=== PATIENT | male | born 1990 | race Two or more races ===

== ENCOUNTER 2019-04-16 23:24 | Emergency (ER) | payer OTHER ==
[~2019-04-16] VITALS: Ht 182.9 cm; Wt 120.0 kg
[~2019-04-16 23:24] MED LIST: ARIP5TAB8 PO; CLON0.2T PO; INSLAN; METF1000 PO; PROZ10 PO
[2019-04-16] MEDS ORDERED: ARIP15TA2 PO (23:39)
[2019-04-16] MEDS ORDERED: ERTU15TA PO (23:42)
[2019-04-16] MEDS ORDERED: PRAV20TA4 PO (23:44)
[2019-04-17] MEDS ORDERED: SODIUM CHLORIDE 0.9% 1,000 ML IV ONE
[2019-04-17 00:25] LABS: GLUCOSE,POINT OF CARE 212 MG/DL (70-110)
[2019-04-17 01:10] LABS: AMPHET/METH SCREEN,URINE NEGATIVE (NEGATIVE); BARBITURATE SCREEN, URINE NEGATIVE (NEGATIVE); BENZODIAZEPINES SCREEN,URINE NEGATIVE (NEGATIVE); CANNABINOID SCREEN,URINE NEGATIVE (NEGATIVE); COCAINE SCREEN,URINE NEGATIVE (NEGATIVE); METHADONE SCREEN, URINE NEGATIVE (NEGATIVE); OPIATE SCREEN,URINE NEGATIVE (NEGATIVE); PHENCYCLIDINE SCREEN,URINE NEGATIVE (NEGATIVE)
[2019-04-17 01:17] LABS: ALANINE AMINOTRANSFERASE 27 U/L (12-78); ALBUMIN 4.5 g/dL (3.4-5.0); ALKALINE PHOSPHATASE 113 U/L (46-116); ANION GAP 13 mmol/L (8-16); ASPARTATE AMINOTRANSFERASE 18 U/L (15-37); BILIRUBIN,TOTAL 1.7 mg/dL (0.1-1.0); CALCIUM, TOTAL 9.5 mg/dL (8.8-10.5); CARBON DIOXIDE 25 mmol/L (22-29); CHLORIDE 93 mmol/L (98-107); GLOMERULAR FILTR. RATE CALC > 60 mL/min (>60); GLUCOSE,RANDOM 205 mg/dL (70-110); SODIUM SERUM 131 mmol/L (136-145); TOTAL PROTEIN, SERUM 8.3 g/dL (6.4-8.2); UREA NITROGEN, BLOOD 5 mg/dL (7-18)
[2019-04-17 01:23] LABS: BASOPHILS % (AUTO) 0.5 % (0.0-2.0); EOSINOPHILS % (AUTO) 3.2 % (1.0-6.0); HEMATOCRIT 46.2 % (41-53); HEMOGLOBIN 15.7 g/dL (13.5-17.5); LYMPHOCYTES # (AUTO) 2.6 K/uL (1.0-4.8); LYMPHOCYTES % (AUTO) 36.9 % (22.0-44.0); MEAN CORPUSCULAR HEMOGLOBIN 29.2 pg (26.0-34.0); MEAN CORPUSCULAR VOLUME 86 fL (80-100); MONOCYTES # (AUTO) 0.7 K/uL (0.1-1.0); MONOCYTES % (AUTO) 10.3 % (2.0-9.0); NEUTROPHILS # (AUTO) 3.5 K/uL (1.8-7.7); NEUTROPHILS % (AUTO) 49.1 % (40.0-70.0); PLATELET COUNT (AUTO) 288 K/uL (150-450); RED BLOOD CELL COUNT(AUTO) 5.37 MIL/uL (4.50-5.90); RED CELL DISTRIBUTION WIDTH 13.4 % (11.5-14.5)
[2019-04-17 01:24] LABS: POTASSIUM 2.6 mmol/L (3.5-5.1)
[2019-04-17] MEDS ORDERED: POTASSIUM CHLORIDE 20 MEQ ER TABLET PO ONE ×2 (01:30→16:15)
[2019-04-17] MEDS ORDERED: POTASSIUM CHL 40 MEQ/D5-0.45NS 1,000 ML IV ONE ×2 (01:30→02:00)
[2019-04-17 01:43] LABS: ACETONE,BLOOD NEGATIVE (NEGATIVE)
[2019-04-17 03:45] LABS: GLUCOSE,POINT OF CARE 170 MG/DL (70-110)
[2019-04-17] MEDS ORDERED: ONDANSETRON HCL 4 MG/2 ML VIAL IVP PRN (04:30)
[2019-04-17] MEDS ORDERED: 0.9% SODIUM CHLORIDE 10 ML SYRINGE IVP PRN (04:30)
[2019-04-17] MEDS ORDERED: ACETAMINOPHEN 325 MG TABLET PO PRN (04:30)
[2019-04-17 07:35] LABS: GLUCOSE,POINT OF CARE 139 MG/DL (70-110)
[2019-04-17 11:35] LABS: ANION GAP 7 mmol/L (8-16); CALCIUM, TOTAL 9.5 mg/dL (8.8-10.5); CARBON DIOXIDE 29 mmol/L (22-29); CHLORIDE 101 mmol/L (98-107); CREATININE 0.84 mg/dL (0.60-1.30); GLOMERULAR FILTR. RATE CALC > 60 mL/min (>60); GLUCOSE,RANDOM 120 mg/dL (70-110); POTASSIUM 3.5 mmol/L (3.5-5.1); SODIUM SERUM 137 mmol/L (136-145); UREA NITROGEN, BLOOD 4 mg/dL (7-18)
[2019-04-17 13:40] LABS: GLUCOSE,POINT OF CARE 148 MG/DL (70-110)
[2019-04-17 17:07] VITALS: BP 128/91
== END 2019-04-17 17:16 | disposition home or self-care (01) ==
LOC: EMS 23:25 → 5S 04-17 11:56 → UNDOADMIN 04-17 11:56 → EMS 04-17 17:16
DX: E87.6 Hypokalemia (principal); E87.1 Hypo-osmolality and hyponatremia; E87.8 Other disorders of electrolyte and fluid balance, not elsewhere classified; E86.0 Dehydration; F31.9 Bipolar disorder, unspecified; E11.9 Type 2 diabetes mellitus without complications; I10 Essential (primary) hypertension; F20.9 Schizophrenia, unspecified; Z79.4 Long term (current) use of insulin; Z79.84 Long term (current) use of oral hypoglycemic drugs
CPT/HCPCS: 36415; 80048; 80053; 80307; 82009; 82962; 83735; 85025; 93005; 96361; 96365; 96366; 99284; G0480; J3480; J7030

== ENCOUNTER 2019-11-17 11:33 | Emergency (ER) | payer OTHER ==
[~2019-11-17] VITALS: Ht 182.9 cm; Wt 113.6 kg
[~2019-11-17 11:33] MED LIST changes: +ARIP15TA2 PO; -ARIP5TAB8 PO; +ERTU15TA PO; +PRAV20TA4 PO
[2019-11-17 13:30] VITALS: BP 112/63
== END 2019-11-17 14:00 | disposition home or self-care (01) ==
LOC: EMS 11:34
DX: F41.9 Anxiety disorder, unspecified (principal); E11.9 Type 2 diabetes mellitus without complications; F31.9 Bipolar disorder, unspecified; F20.9 Schizophrenia, unspecified; Z79.899 Other long term (current) drug therapy; Z79.84 Long term (current) use of oral hypoglycemic drugs

== ENCOUNTER 2021-02-15 17:31 | Emergency (ER) | payer OTHER ==
[~2021-02-15] VITALS: Ht 182.9 cm; Wt 113.6 kg
[~2021-02-15 17:31] MED LIST changes: -ARIP15TA2 PO; +ARIP15TA27 PO; +FLUO10CA24 PO; -PROZ10 PO
[2021-02-15] MEDS ORDERED: INSU100V SQ (17:37)
[2021-02-15] MEDS ORDERED: DULA0.75 SQ (17:37)
[2021-02-15 17:46] LABS: GLUCOSE,POINT OF CARE 258 MG/DL (70-110)
[2021-02-15] MEDS ORDERED: IBUPROFEN 600 MG TABLET PO ONE (18:30)
[2021-02-15 18:42] LABS: GLUCOMETER DEV NAME(LOC) ERT.5; GLUCOSE,POINT OF CARE 244 MG/DL (70-110)
[2021-02-15 19:10] VITALS: BP 145/92
== END 2021-02-15 19:13 | disposition home or self-care (01) ==
LOC: EMS 17:31
DX: H60.91 Unspecified otitis externa, right ear (principal); D17.0 Benign lipomatous neoplasm of skin and subcutaneous tissue of head, face and neck; H92.01 Otalgia, right ear; E11.65 Type 2 diabetes mellitus with hyperglycemia; I10 Essential (primary) hypertension; F20.9 Schizophrenia, unspecified; F31.9 Bipolar disorder, unspecified; Z20.822 Contact with and (suspected) exposure to COVID-19; Z79.4 Long term (current) use of insulin
CPT/HCPCS: 82962; 99283; U0003

== ENCOUNTER 2021-09-04 18:02 | Emergency (ER) | payer OTHER ==
[~2021-09-04] VITALS: Ht 185.4 cm; Wt 118.2 kg
[~2021-09-04 18:02] MED LIST changes: +DULA0.75 SQ; +INSU100V SQ
[2021-09-04] MEDS ORDERED: PERTUSS(ACELL),DIPH,TET VAC/PF 0.5 ML SYRINGE IM. ONE (20:00)
[2021-09-04] MEDS ORDERED: AMOX TR/POT CLAV 875 MG/125 MG TABLET PO ONE (20:00)
[2021-09-04] MEDS ORDERED: AMOX1TAB16 PO (21:30)
[2021-09-04] MEDS ORDERED: BACITRACIN 0.9 GM PACKET OINTMENT TP ONE (21:30)
[2021-09-04] MEDS ORDERED: IBUP-2071 PO (21:30)
[2021-09-04] MEDS ORDERED: LIDOCAINE 1% 10 ML VIAL PERC ONE (21:30)
[2021-09-04 22:40] VITALS: BP 133/95
== END 2021-09-04 23:10 | disposition home or self-care (01) ==
LOC: EMS 18:07
DX: S91.352A Open bite, left foot, initial encounter (principal); F31.9 Bipolar disorder, unspecified; F20.9 Schizophrenia, unspecified; Z87.891 Personal history of nicotine dependence; Z79.4 Long term (current) use of insulin; Z79.899 Other long term (current) drug therapy; W54.0XXA Bitten by dog, initial encounter; Y93.89 Activity, other specified; Y92.89 Other specified places as the place of occurrence of the external cause; Y99.8 Other external cause status
CPT/HCPCS: 12002; 73630; 90471; 90715; 99283; J3490

== ENCOUNTER 2022-02-17 13:28 | Emergency (ER) | payer OTHER ==
[~2022-02-17] VITALS: Ht 185.4 cm; Wt 118.2 kg
[~2022-02-17 13:28] MED LIST changes: +AMOX1TAB16 PO; +IBUP-2071 PO
[2022-02-17 14:02] VITALS: BP 126/82
[2022-02-17] MEDS ORDERED: PERTUSS(ACELL),DIPH,TET VAC/PF 0.5 ML SYRINGE IM. ONE (16:45)
== END 2022-02-17 17:18 | disposition home or self-care (01) ==
LOC: EMS 13:28
DX: S61.442A Puncture wound with foreign body of left hand, initial encounter (principal); F31.9 Bipolar disorder, unspecified; E11.9 Type 2 diabetes mellitus without complications; F20.9 Schizophrenia, unspecified
CPT/HCPCS: 73130; 90471; 90715; 96372; 99284; J0690

== ENCOUNTER 2023-02-13 17:44 | Emergency (ER) | payer OTHER ==
[~2023-02-13] VITALS: Ht 182.9 cm; Wt 113.6 kg
[~2023-02-13 17:44] MED LIST changes: -AMOX1TAB16 PO; -IBUP-2071 PO; -INSLAN; -INSU100V SQ
[2023-02-13 17:53] VITALS: TEMP 98.6
[2023-02-13] MEDS ORDERED: HydrOXYzine PAMOATE 50 MG CAPSULE PO ONE (18:15)
[2023-02-13] MEDS ORDERED: IBUPROFEN 600 MG TABLET PO ONE (18:15)
[2023-02-13] MEDS ORDERED: ATOR40TA71 PO (18:24)
[2023-02-13] MEDS ORDERED: TRAZ-257 PO (18:24)
[2023-02-13] MEDS ORDERED: METF-446 PO (18:24)
[2023-02-13] MEDS ORDERED: SEMA0.5P SQ (18:24)
[2023-02-13] MEDS ORDERED: CHOL200074 PO (18:24)
[2023-02-13] MEDS ORDERED: ARIP400S IM (18:24)
[2023-02-13] MEDS ORDERED: FLUO40CA PO (18:24)
[2023-02-13] MEDS ORDERED: INSU500V SQ (18:24)
[2023-02-13] MEDS ORDERED: IBUP-1492 PO (19:01)
[2023-02-13 19:27] VITALS: BP 127/81; PULSE 104; RESP 18
[2023-02-13] MEDS ORDERED: HYDR-4808 PO (19:42)
== END 2023-02-13 19:59 | disposition home or self-care (01) ==
LOC: EMS 17:47
DX: S09.90XA Unspecified injury of head, initial encounter (principal); E11.65 Type 2 diabetes mellitus with hyperglycemia; F41.9 Anxiety disorder, unspecified; F31.9 Bipolar disorder, unspecified; F20.9 Schizophrenia, unspecified; Z87.891 Personal history of nicotine dependence; Y04.2XXA Assault by strike against or bumped into by another person, initial encounter; Y93.89 Activity, other specified; Y92.89 Other specified places as the place of occurrence of the external cause; Y99.8 Other external cause status
CPT/HCPCS: 70450; 82948; 99284

== ENCOUNTER 2023-02-20 22:09 | Emergency (ER) | payer OTHER ==
[~2023-02-20] VITALS: Ht 182.9 cm; Wt 115.9 kg
[~2023-02-20 22:09] MED LIST changes: -ARIP15TA27 PO; +ARIP400S IM; +ATOR40TA71 PO; +CHOL200074 PO; -DULA0.75 SQ; -FLUO10CA24 PO; +FLUO40CA PO; +HYDR-4808 PO; +IBUP-1492 PO; +INSU500V SQ; +METF-446 PO; -METF1000 PO; -PRAV20TA4 PO; +SEMA0.5P SQ; +TRAZ-257 PO
[2023-02-20 22:21] VITALS: TEMP 98.5
[2023-02-20 22:36] LABS: GLUCOMETER DEV NAME(LOC) ERT.5; GLUCOSE,POINT OF CARE 382 MG/DL (70-110)
[2023-02-21] MEDS ORDERED: SODIUM CHLORIDE 0.9% 1,000 ML IV ONE (01:00)
[2023-02-21 01:30] VITALS: BP 134/71; PULSE 82; RESP 17
[2023-02-21 01:36] LABS: BASOPHILS % (AUTO) 0.5 % (0.0-2.0); EOSINOPHILS % (AUTO) 4.5 % (1.0-6.0); HEMATOCRIT 43.8 % (41-53); HEMOGLOBIN 14.7 g/dL (13.5-17.5); LYMPHOCYTES # (AUTO) 2.1 K/uL (1.0-4.8); LYMPHOCYTES % (AUTO) 39.6 % (22.0-44.0); MEAN CORPUSCULAR HEMOGLOBIN 28.6 pg (26.0-34.0); MEAN CORPUSCULAR HGB CONC 33.7 G/dL (31.0-37.0); MEAN CORPUSCULAR VOLUME 85 fL (80-100); MONOCYTES # (AUTO) 0.4 K/uL (0.1-1.0); MONOCYTES % (AUTO) 6.9 % (2.0-9.0); NEUTROPHILS # (AUTO) 2.6 K/uL (1.8-7.7); NEUTROPHILS % (AUTO) 48.5 % (40.0-70.0); PLATELET COUNT (AUTO) 224 K/uL (150-450); RED BLOOD CELL COUNT(AUTO) 5.16 MIL/uL (4.50-5.90); RED CELL DISTRIBUTION WIDTH 13.3 % (11.5-14.5)
[2023-02-21 01:58] LABS: ANION GAP 9 mmol/L (8-16); CALCIUM, TOTAL 9.3 mg/dL (8.8-10.5); CARBON DIOXIDE 30 mmol/L (22-29); CHLORIDE 97 mmol/L (98-107); CREATININE 0.99 mg/dL (0.60-1.30); GLOMERULAR FILTR. RATE CALC > 60 mL/min (>60); GLUCOSE,RANDOM 320 mg/dL (70-110); POTASSIUM 3.5 mmol/L (3.5-5.1); SODIUM SERUM 136 mmol/L (136-145)
[2023-02-21] MEDS ORDERED: ACETAMINOPHEN 500 MG TABLET PO ONE (02:00)
[2023-02-21] MEDS ORDERED: CYCLOBENZAPRINE HCL 10 MG TABLET PO ONE (02:15)
[2023-02-21] MEDS ORDERED: CYCL-448 PO (02:21)
== END 2023-02-21 02:25 | disposition home or self-care (01) ==
LOC: EMS 22:10
DX: E11.65 Type 2 diabetes mellitus with hyperglycemia (principal); M54.9 Dorsalgia, unspecified; F41.9 Anxiety disorder, unspecified; F31.9 Bipolar disorder, unspecified; F20.9 Schizophrenia, unspecified; Z87.891 Personal history of nicotine dependence
CPT/HCPCS: 99283; 80048; 82962; 85025; 36415; 96360; J7030

== ENCOUNTER 2023-04-10 21:48 | Emergency (ER) | payer OTHER ==
[~2023-04-10] VITALS: Ht 167.6 cm; Wt 87.0 kg
[~2023-04-10 21:48] MED LIST changes: +CYCL-448 PO
[2023-04-10] MEDS ORDERED: SODIUM CHLORIDE 0.9% 1,000 ML IV ONE (22:00)
[2023-04-10] MEDS ORDERED: ONDANSETRON HCL 4 MG/2 ML VIAL IVP ONE ×2 (22:00→23:00)
[2023-04-10 22:31] LABS: GLUCOMETER DEV NAME(LOC) ERT.5
[2023-04-10 22:33] LABS: BASOPHILS % (AUTO) 0.2 % (0.0-2.0); EOSINOPHILS % (AUTO) 0.9 % (1.0-6.0); HEMATOCRIT 42.3 % (41-53); HEMOGLOBIN 14.5 g/dL (13.5-17.5); LYMPHOCYTES # (AUTO) 1.5 K/uL (1.0-4.8); LYMPHOCYTES % (AUTO) 13.5 % (22.0-44.0); MEAN CORPUSCULAR HEMOGLOBIN 28.8 pg (26.0-34.0); MEAN CORPUSCULAR HGB CONC 34.2 G/dL (31.0-37.0); MEAN CORPUSCULAR VOLUME 84 fL (80-100); MONOCYTES # (AUTO) 0.5 K/uL (0.1-1.0); MONOCYTES % (AUTO) 4.7 % (2.0-9.0); NEUTROPHILS # (AUTO) 8.7 K/uL (1.8-7.7); NEUTROPHILS % (AUTO) 80.7 % (40.0-70.0); PLATELET COUNT (AUTO) 265 K/uL (150-450); RED BLOOD CELL COUNT(AUTO) 5.02 MIL/uL (4.50-5.90); RED CELL DISTRIBUTION WIDTH 13.3 % (11.5-14.5)
[2023-04-10 22:52] LABS: ALANINE AMINOTRANSFERASE 23 U/L (12-78); ALBUMIN 3.8 g/dL (3.4-5.0); ALKALINE PHOSPHATASE 115 U/L (46-116); ASPARTATE AMINOTRANSFERASE 15 U/L (15-37); BILIRUBIN,TOTAL 1.1 mg/dL (0.1-1.0); CREATININE 0.99 mg/dL (0.60-1.30); GLOMERULAR FILTR. RATE CALC > 60 mL/min (>60); LIPASE 128 U/L (16-77); TOTAL PROTEIN, SERUM 7.4 g/dL (6.4-8.2)
[2023-04-10 22:59] LABS: ANION GAP 16 mmol/L (8-16); CARBON DIOXIDE 24 mmol/L (22-29); CHLORIDE 91 mmol/L (98-107); POTASSIUM 4.1 mmol/L (3.5-5.1); SODIUM SERUM 131 mmol/L (136-145)
[2023-04-10] MEDS ORDERED: INSULIN REGULAR, HUMAN 100 UNITS/ML IVP ONE (23:00)
[2023-04-10] MEDS ORDERED: KETOROLAC TROMETHAMINE 30 MG/ML VIAL IVP ONE (23:00)
[2023-04-10] MEDS ORDERED: SODIUM CHLORIDE 0.9% 2,000 ML IV ONE (23:00)
[2023-04-10 23:01] LABS: GLUCOSE,RANDOM 492 mg/dL (70-110)
[2023-04-11 01:18] LABS: AMPHET/METH SCREEN,URINE NEGATIVE (NEGATIVE); BARBITURATE SCREEN, URINE NEGATIVE (NEGATIVE); BENZODIAZEPINES SCREEN,URINE NEGATIVE (NEGATIVE); CANNABINOID SCREEN,URINE NEGATIVE (NEGATIVE); COCAINE SCREEN,URINE NEGATIVE (NEGATIVE); METHADONE SCREEN, URINE NEGATIVE (NEGATIVE); OPIATE SCREEN,URINE NEGATIVE (NEGATIVE); PHENCYCLIDINE SCREEN,URINE NEGATIVE (NEGATIVE)
[2023-04-11 01:41] LABS: GLUCOMETER DEV NAME(LOC) ER.6
[2023-04-11 02:46] LABS: GLUCOMETER DEV NAME(LOC) ER.6
[2023-04-11] MEDS ORDERED: INSULIN REGULAR, HUMAN 100 UNITS/ML IVP ONE (03:00)
[2023-04-11] MEDS ORDERED: SODIUM CHLORIDE 0.9% 1,000 ML IV ONE (03:00)
[2023-04-11 04:46] VITALS: BP 120/70; PULSE 70; RESP 18; TEMP 98.6
[2023-04-11 05:16] LABS: GLUCOMETER DEV NAME(LOC) ER.6
[2023-04-11 05:16] LABS: GLUCOMETER DEV NAME(LOC) ER.6
== END 2023-04-11 04:46 | disposition home or self-care (01) ==
LOC: EMS 21:49
DX: E11.65 Type 2 diabetes mellitus with hyperglycemia (principal); E86.0 Dehydration; F31.9 Bipolar disorder, unspecified; Z91.148 Patient's other noncompliance with medication regimen for other reason
CPT/HCPCS: 99285; 96374; 96361 ×2; 80053; 82009; 83690; 85025; 36415; 93005; 80307; 74176; 96375; 96376; 82962; J7030 ×2; J1885; J2405; G0480; J1815